=== PATIENT | female | born 1995 | race African-American/Black ===

== ENCOUNTER 2023-11-11 13:25 | Emergency (ER) | payer BC, SELFPAY ==
--- NOTE | ~2023-11-11 | XR_ITS ---
EXAM: XR lumbar spine 2-3V DATE: 11/11/2023 17:13 HISTORY: low back pain no injury . COMPARISON: None available. FINDINGS: Mild lumbar scoliosis. 5 nonrib-bearing lumbar-type vertebral bodies. Pedicles intact. Norm al vertebral body alignment. Vertebral body heights preserved. Disc spaces maintained. Normal facets and posterior elements. No fracture or dislocation. IMPRESSION: Mild lumbar scoliosis. Otherwise normal lumbar spine radiograph findings. Reviewed, dictated and finalized at location K. BOSS IMPRESSION: Mild lumbar scoliosis. Otherwise normal lumbar spine radiograph anisha townsend.
[2023-11-11 13:29] VITALS: BP 131/76; PULSE 114; RESP 20; TEMP 36.8; O2SAT 100
--- NOTE | 2023-11-11 16:55 | ED.BACK ---
HPI - Back Pain/Injury General Chief Complaint: Back Pain/Injury Stated Complaint: back pain Time Seen by Provider: 11/11/23 16:42 Source: patient Mode of arrival: ambulatory Limitations: no limitations History of Present Illness HPI Narrative: This is a 28 year old female that presents to the ER for low back pain. Ongoing over the last couple of days. No known injury or trauma. Reports history of chronic low back problems. Reports she usually takes a muscle relaxer and has ran out. Pain is worse with movement and relieved with rest. Denies saddle anesthesia or bowel/bladder incontinence. Related Data Allergies Allergy/AdvReac Type Severity Reaction Status Date / Time No Known Allergies Allergy Verified 11/11/23 17:24 Review of Systems Review of Systems: CONSTITUTIONAL: Denies fever GENITOURINARY: Denies dysuria or hematuria SKIN: Denies rash MUSCULOSKELETAL: Reports back pain, joint pain, and myalgia. NEUROLOGIC: Denies numbness, or weakness. All systems reviewed & are unremarkable except as noted in HPI and below PMFSH Past Medical History Medical History (Updated 11/11/23 @ 18:26 by Bina Ball PA-C) No active medical problems Social History Social History (Updated 11/11/23 @ 17:02 by Bina Ball PA-C) Substance use: never Exam Narrative: GENERAL: Well-appearing, well-nourished, and in no acute distress. HEAD: Normocephalic, atraumatic. EYES: EOMI. CHEST: Clear to auscultation. No respiratory distress. No wheezes rales or rhonchi HEART: Regular rate and rhythm. No murmur heard. Normal peripheral pulses. BACK: No midline spinal tenderness EXTREMITIES: Normal range of motion. No edema. Strength equal in bilateral lower extremities (5/5) SKIN: Warm, dry, no rash. NEURO: No focal deficits. Alert and oriented x3. PSYCH: Normal mood and affect Course Course Emergency Course: Patient updated on workup and agrees with plan of care. Resting comfortably Vital Signs Vital signs: Vital Signs Temperature 98.3 F 11/11/23 13:29 Pulse Rate 114 H 11/11/23 13:29 Respiratory Rate 20 11/11/23 13:29 Blood Pressure 131/76 11/11/23 13:29 Pulse Oximetry 100 11/11/23 13:29 Oxygen Delivery Room Air 11/11/23 13:29 Temperature 98.3 F 11/11/23 13:29 Pulse Rate 114 H 11/11/23 13:29 Respiratory Rate 20 11/11/23 13:29 Blood Pressure 131/76 11/11/23 13:29 Pulse Oximetry 100 11/11/23 13:29 Oxygen Delivery Room Air 11/11/23 13:29 MDM - Back Pain/Injury MDM Narrative Medical decision making narrative: Patient presents to the ER for acute on chronic low back pain. Patient is neurologically intact. Lumbar spine x-ray without acute abnormalities. Patient update don her workup. Instructed to have follow up with her PCP. She was given warnings to return to the ER Differential Diagnosis Differential diagnosis: Likely lumbar radiculopathy and strain of lumbar region Imaging Data Radiologist's impression: ITS Impressions Lumbar Spine X-Ray 11/11/23 17:17 IMPRESSION: Mild lumbar scoliosis. Otherwise normal lumbar spine radiograph findings. Critical Care Time Critical Care Time Critical Care Time: No Discharge Plan Discharge Clinical Impression: Low back pain Qualifiers: Chronicity: chronic Back pain laterality: bilateral Sciatica presence: without sciatica Qualified Code(s): M54.50 - Low back pain, unspecified Patient Disposition: Home, Self-Care Condition: Stable Instructions: Back Pain (ED) Additional Instructions: Return to the ER if you experience weakness, numbness, bowel/bladder incontinence, or any other symptoms that are concerning to you Rest, use ice/heat, take anti-inflammatories (Aleve, Ibuprofen, Naproxen, etc) or Tylenol as needed for pain as well as muscle relaxer (Flexeril) as needed for pain. Muscle relaxers can make you drowsy, do not drive if you take this Follow up with your primary care doctor Prescrip
[2023-11-11] MEDS: ACETAMINOPHEN ELIXIR 325 MG/10.15 ML UDC 650 MG PO (17:24)
[2023-11-11] MEDS: diazePAM INJ (*CRX) 10 MG/2 ML SYRINGE 5 MG IM (17:24)
== END 2023-11-11 18:50 | disposition home or self-care (01) ==
PROVIDERS: Emergency Provider Physician Assistant
DX: M54.50 Low back pain, unspecified (principal)
CPT/HCPCS: 72100; 96372; 99283; A9270; J3360

== ENCOUNTER 2023-11-15 14:46 | Emergency (ER) | payer BC, SELFPAY ==
[2023-11-15 14:48] VITALS: BP 107/78; PULSE 118; RESP 16; TEMP 36.2; O2SAT 100
[2023-11-15 15:05] VITALS: BP 68/30
--- NOTE | 2023-11-15 15:09 | PC.NURSE ---
Pt to triage desk, states she does not feel well. Pt removed nose clamp per self, not cooperative with staff, will not leave nose clamp or hold pressure to nose. Pt educated on importance of nose clamp/pressure applied. Pt moved into wheelchair by staff and pt to triage bay for reassessment of vitals. Pt hypotensive, taken to room
[2023-11-15 15:19] VITALS: BP 91/54; PULSE 80; RESP 16; O2SAT 99
[2023-11-15] MEDS: SODIUM CHLORIDE 0.9% IV 1,000 ML 999 ML (15:19)
[2023-11-15 15:26] LABS: Basophils Percent Auto 0.3 % (0.2-1.2); Eosinophils Percent Auto 0.3 % (0-4.4); Hematocrit 30.7 % (37.0-47.0); Hemoglobin 9.2 g/dL (12.0-15.0); Immature Granulocyte Absolute 0.02 K/mm3 (0.00-0.031); Immature Granulocyte Percent A 0.3 % (0-0.5); Lymphocytes Absolute Auto 1.72 K/mm3 (0.9-3.2); Lymphocytes Percent Auto 25.4 % (18.3-44.2); Mean Corpuscular Hemoglobin 23.8 pg (26-34); Mean Corpuscular Volume 79.5 fl (80-100); Mean Platelet Volume 10.3 fl (7.4-10.4); Monocytes Absolute Auto 1.5 K/mm3 (0.1-0.6); Monocytes Percent Auto 22.6 % (2.6-8.5); Neutrophils Absolute Auto 3.5 K/mm3 (1.3-6.7); Neutrophils Percent Auto 51.1 % (45.5-73.1); Platelet Count Result 295 k/mm3 (150-375); Red Blood Count 3.86 M/mm3 (4.2-5.4); Red Cell Distribution Width 16.5 % (11.5-14.5); White Blood Count 6.8 K/mm3 (4.5-10.0)
[2023-11-15 15:37] LABS: INR 1.1; Prothrombin Time 14.8 Seconds (11.1-14.7)
[2023-11-15 15:40] LABS: Alanine Aminotransferase 21 U/L (6-35); Albumin Level 3.4 g/dL (3.5-5.1); Alkaline Phosphatase 102 U/L (38-126); Anion Gap 9 mmol/L (8-16); Aspartate Amino Transferase 32 U/L (14-36); Bilirubin,Total 0.2 mg/dL (0.2-1.3); Blood Urea Nitrogen 5 mg/dL (7-17); Calcium 9.1 mg/dL (8.4-10.2); Carbon Dioxide 26 mmol/L (22-30); Chloride 103 mmol/L (98-107); Estimated Glomerular Filt Rate > 60; Glucose 135 mg/dL (65-110); Potassium 2.7 mmol/L (3.4-5.0); Sodium 138 mmol/L (137-145)
[2023-11-15 15:42] LABS: Ovalocytes 1+ (NORMAL); Platelet Estimate Adequate (Adequate); Schistocytes None Seen (NORMAL)
[2023-11-15] MEDS: OXYMETAZOLINE HCL 0.05% NAS 15 ML BTL (*BKC) 1 SPRAY NASAL (15:46)
[2023-11-15 15:51] VITALS: BP 90/61; PULSE 86; RESP 13; O2SAT 100
[2023-11-15] MEDS: POTASSIUM CHLORIDE 20 MEQ PACKET (FOR LIQUID) 40 MEQ PO (15:58)
--- NOTE | 2023-11-15 16:54 | ED.EPISTAXIS ---
HPI - Epistaxis General Chief complaint: Epistaxis Stated complaint: nosebleed Time Seen by Provider: 11/15/23 15:12 History of Present Illness HPI Narrative: 28-year-old female presented the ED for evaluation of epistaxis. Patient states that the bleeding started when she was in the shower. Upon arrival to the emergency department patient had no active bleeding. Patient did have significant clot in left naris that she was unable to clear by blowing her nose over suction. Patient states she is not on any blood thinners and has no history of bleeding disorders. Patient does report yearly nose bleeds. Patient does have follow-up with a ENT physician in [facility]. Related Data Allergies Allergy/AdvReac Type Severity Reaction Status Date / Time No Known Allergies Allergy Verified 11/11/23 17:24 Review of Systems Review of Systems: All systems reviewed & are unremarkable except as noted in HPI and below PMFSH Past Medical History Medical History (Updated 11/16/23 @ 00:01 by Isamar Carr) No active medical problems Social History Social History (Updated 11/11/23 @ 17:02 by Bina Ball PA-C) Substance use: never Exam Narrative: APPEARANCE: Well appearing, no pain, no distress, well-nourished. HEAD: normocephalic, atraumatic. EYES: PERRLA/EOMI, conjunctivae clear. NOSE: Clot within left nares EARS:TMS clear with good light reflex. THROAT: Pharynx clear, no exudate. NECK: Supple. No adenopathy, no masses. RESPIRATORY: Airway patent, respirations nonlabored. Clear to auscultation bilaterally, no rales, rhonchi, wheezing. CARDIOVASCULAR: Regular rate and rhythm without murmurs rubs or gallops. ABDOMINAL: Soft, nontender, nondistended, normal bowel sounds MUSCULOSKELETAL: Moves all extremities. Strength/ROM intact, No edema, No calf tenderness. NEURO: Alert. Cranial nerves II through XII intact. Good gait. Good coordination SKIN: Warm, dry. Normal Color Course Course Emergency Course: 28-year-old female presenting to the emergency department for evaluation of epistaxis. Patient had no active bleeding but did have some residual clot. After clot was cleared patient had no residual bleeding. Patient was updated on epistaxis care at home and encouraged to have close follow-up with ENT. All questions concerns were addressed patient was well-appearing at time of discharge. Vital Signs Vital signs: Vital Signs Temperature 97.2 F L 11/15/23 14:48 Pulse Rate 118 H 11/15/23 14:48 Respiratory Rate 16 11/15/23 14:48 Blood Pressure 107/78 11/15/23 14:48 Pulse Oximetry 100 11/15/23 14:48 Oxygen Delivery Room Air 11/15/23 14:48 Temperature 97.2 F L 11/15/23 14:48 Pulse Rate 78 11/15/23 17:23 Respiratory Rate 18 11/15/23 17:23 Blood Pressure 117/76 11/15/23 17:23 Pulse Oximetry 99 11/15/23 17:23 Oxygen Delivery Room Air 11/15/23 14:48 Procedures Epistaxis Control left: Nose Prepped With: oxymetazoline Direct Inspection: yes Clots Removed by: blowing nose Cautery Used: none Device Inserted: other Patient Tolerated Procedure: well and no complications MDM - Epistaxis Lab Data 11/15/23 15:21 11/15/23 15:21 Labs: Lab Results 11/15/23 Range/Units 15:21 WBC 6.8 (4.5-10.0) K/mm3 RBC 3.86 L (4.2-5.4) M/mm3 Hgb 9.2 L (12.0-15.0) g/dL Hct 30.7 L (37.0-47.0) % MCV 79.5 L (80-100) fl MCH 23.8 L (26-34) pg MCHC 30.0 L (32-36) g/dl RDW 16.5 H (11.5-14.5) % Plt Count 295 (150-375) k/mm3 MPV 10.3 (7.4-10.4) fl Immature Gran % (Auto) 0.3 (0-0.5) % Neut % (Auto) 51.1 (45.5-73.1) % Lymph % (Auto) 25.4 (18.3-44.2) % [place] % (Auto) 22.6 H (2.6-8.5) % Eos % (Auto) 0.3 (0-4.4) % Baso % (Auto) 0.3 (0.2-1.2) % Lymph # (Auto) 1.72 (0.9-3.2) K/mm3 [place] # (Auto) 1.5 H (0.1-0.6) K/mm3 Eos # (Auto) 0.0 (0-0.3) K/mm3 Baso # (Auto) 0.0 (0.0-0.1)
[2023-11-15 17:23] VITALS: BP 117/76; PULSE 78; RESP 18; O2SAT 99
== END 2023-11-15 17:29 | disposition home or self-care (01) ==
PROVIDERS: Emergency Provider Emergency Medicine
DX: R04.0 Epistaxis (principal)
CPT/HCPCS: 36415; 80053; 85025; 85610; 85730; 96360; 99283; A9270; J7030

== ENCOUNTER 2025-11-10 21:12 | Emergency (ER) | payer SELFPAY ==
--- NOTE | ~2025-11-10 | XR_ITS ---
Examination: XR chest 1V portable Clinical History: weakness Comparison: None Technique: Portable AP Findings: Heart size normal. Lungs clear. No acute bony abnormality. IMPRESSION: 1. No acute cardiopulmonary findings given portable technique. Reviewed, dictated and finalized at location R. YMAN
[2025-11-10 21:28] VITALS: BP 124/72; PULSE 100; RESP 24; TEMP 37; O2SAT 100
--- NOTE | 2025-11-10 23:29 | ECG_ITS ---
Test Date: 2025-11-11 00:09:05 Measurements Intervals [place] Rate: 92 P: 37 MS: 149 QRS: 62 QRSD: 76 T: -10 QT: 322 QTc: 400 Interpretive Statements SINUS RHYTHM WITH SINUS ARRHYTHMIA NONSPECIFIC T-WAVE ABNORMALITY- ANTEROLAT/INF LEADS BASELINE ARTIFACT- I, III, AVR, AVL, AVF, V3 BORDERLINE ECG No previous ECG available for comparison Electronically Signed On 11-11-2025 09:22:12 ACCOUNTS PAYABLE OR RECEIVABLE CLERK by Luca Chowdhury D.O.
--- NOTE | 2025-11-10 23:42 | ED.HA ---
HPI - Headache General Chief Complaint: Headache Stated Complaint: headache Time Seen by Provider: 11/10/25 23:30 Source: patient and RN notes reviewed Mode of arrival: EMS Limitations: no limitations History of Present Illness HPI Narrative: Patient presents with report of a headache and sinus issues. Pain /. Has tried OTC congestion meds but having pain everywhere and myalgias. Typically takes anxiety and allergy medications but couldn't take them due to her symptoms. Headache is frontal but also posterior. Has a muscle relaxer but unknown what it is. Not short of breath. No sick contacts. No cough, diarrhea, fever, chills. Says multiple times that she has a high pain tolerance. Her symptoms have been going on for awhile, symptoms come and go. Started before [place]. Lives with her kids, the father of the children comes by and has been checking on her. Denies trauma. Not on anticoagulation. Photophobia. Not really phonophobia but she states she likes to cuddle with her 3 yo but they are loud which doesn't help. Mild eye pain. No loss of consciousness. No neck stiffness. Nausea when the mucous hits her stomach but no vomiting. PCP Chanelle Arredondo Related Data Allergies Allergy/AdvReac Type Severity Reaction Status Date / Time No Known Allergies Allergy Verified 11/11/23 17:24 [facility] Past Medical History Medical History Anxiety Allergies Social History Social History Substance use: never Living arrangements: with family Additional living arrangements comments: kids Exam Narrative: GENERAL: well-nourished, and in no acute distress. HEAD: Normocephalic, atraumatic. EYES: Non injected, non icteric ENT: No epistaxis. Nasal congestion. Gross auditory acuity intact. Tenderness to percussion of frontal sinuses bilaterally. NECK: Supple. No meningismus. Full ROM. CHEST: Speaking in full sentences. No respiratory distress. HEART: Regular rate and rhythm. ABDOMEN: Soft, nondistended. No rigidity or guarding. Not peritoneal EXTREMITIES: Normal range of motion. No lower extremity edema. SKIN: Warm, dry, no rash. NEURO: No focal deficits. Alert and oriented. Answering questions. Following commands. Normal speech without aphasia or dysarthria. PSYCH: Congruent mood and affect. Course Vital Signs Vital signs: Vital Signs Temperature 98.6 F 11/10/25 21:28 Pulse Rate 100 11/10/25 21:28 Respiratory Rate 24 H 11/10/25 21:28 Blood Pressure 124/72 11/10/25 21:28 Pulse Oximetry 100 11/10/25 21:28 Oxygen Delivery Autopap 11/10/25 21:28 Temperature 98.6 F 11/10/25 21:28 Pulse Rate 70 11/11/25 02:10 Respiratory Rate 16 11/11/25 02:10 Blood Pressure 120/75 11/11/25 02:10 Pulse Oximetry 99 11/11/25 02:10 Oxygen Delivery Autopap 11/10/25 21:28 MDM MDM Narrative Medical decision making narrative: Patient presents with headache and sinus issues. In the emergency department she is afebrile vital signs notable for mild tachypnea. When patient last here approximately 2 years ago, her Hgb was 9.2 so triage orders were placed to include labs. After obtaining the patient's history and performing a physical exam, the headache is most likely due to benign etiology. The neurological examination is non-focal, there are no high-risk features on history, vital signs are stable, and the patient is non-toxic appearing. The Ddx for the patient's headache is tension headache, migraine, or other headache of non-emergent etiology. More likely, I suspect this is related to sinuses. Unlikely SAH: headache is non-thunderclap. Headache is intermittent Unlikely subdural/epidural hematoma: no history of trauma, no anticoagulation Unlikely meningitis: afebrile, no meningismus, mild photophobia Unlikely temporal arteritis: pt <60 years old. Unlikely carbon monoxide poisoning: no other house members with similar symptoms UA unremarkable. Preg test negative. The patient's headache was treated symptomatically with acetaminophen. Chemistry normal. She has a mild leukocytosis. Her microcytic anemia is stable and in fact improved from previous. Viral swab negative. On reassessment she states she is starting to get some relief although still having some nasal pressure. Will give ketorolac IM as well as antibiotics given her symptom duration which suggests that might be bacterial rather than viral. Also discharged with Rx for rest of antibiotic course and Afrin spray as well as Zofran and OTC meds. She is discharged with instructions to follow up with their PCP. Given recurrent issues with sinuses/allergies, also provided contact info for ent. Differential Diagnosis Differential Diagnosis: acute viral syndrome; sinusitis/rhinosinusitis (also see above for rest) Medical Records I have reviewed the following patient records and this information was taken into consideration when formulating the assessment and plan.: previous labs and previous ER visits Lab Data MDM Lab Attestation statement: I personally reviewed the patient's lab results. 11/11/25 00:36 11/11/25 00:36 Labs: Lab Results 11/11/25 11/11/25 Range/Units 00:15 00:36 WBC 12.6 H (4.5-10.0) K/mm3 RBC 4.77 (4.2-5.4) M/mm3 Hgb 11.0 L (12.0-15.0) g/dL Hct 35.5 L (37.0-47.0) % MCV 74.4 L (80-100) fl MCH 23.1 L (26-34) pg MCHC 31.0 L (32-36) g/dl RDW 15.6 H (11.5-14.5) % Plt Count 326 (150-375) k/mm3 MPV 9.5 (7.4-10.4) fl Immature Gran % (Auto) 0.3 (0-0.5) % Neut % (Auto) 84.2 H (45.5-73.1) % Lymph % (Auto) 8.4 L (18.3-44.2) % [place] % (Auto) 6.5 (2.6-8.5) % Eos % (Auto) 0.2 (0-4.4) % Baso % (Auto) 0.4 (0.2-1.2) % Lymph # (Auto) 1.05 (0.9-3.2) K/mm3 [place] # (Auto) 0.8 H (0.1-0.6) K/mm3 Eos # (Auto) 0.0 (0-0.3) K/mm3 Baso # (Auto) 0.1 (0.0-0.1) K/mm3 Abs Immat Gran (auto) 0.04 H (0.00-0.031) K/mm3 Absolute Neuts (auto) 10.6 H (1.3-6.7) K/mm3 Absolute Nucleated RBC 0.000 (0.0-0.012) K/mm3 Band Neutrophils % Not Reportable Nucleated RBC % 0.0 (0.0-0.2) % Platelet Estimate Adequate (Adequate) % Immature Plt Fraction 5.0 (0.9-11.2) % Anisocytosis 1+ Schistocytes None seen PT 14.1 (11.1-14.7) Seconds INR 1.1 APTT 35.1 (22.3-36.8) Seconds Sodium 138 (137-145) mmol/L Potassium 3.4 (3.4-5.0) mmol/L Chloride 106 (98-107) mmol/L Carbon Dioxide 24 (22-30) mmol/L Anion Gap 8 (4-12) mmol/L BUN 9 (7-17) mg/dL Creatinine 0.73 (0.7-1.0) mg/dL Estim Creat Clear Calc Not Reportable Estimated GFR > 60 (59 - ) Glucose 95 (65-110) mg/dL Calcium 9.4 (8.4-10.2) mg/dL Magnesium 1.6 (1.6-2.3) mg/dL Total Bilirubin 0.3 (0.2-1.3) mg/dL AST 36 (14-36) U/L ALT 19 (6-35) U/L Alkaline Phosphatase 102 (38-126) U/L Total Protein 7.9 (6.3-8.2) g/dL Albumin 4.5 (3.5-5.1) g/dL Urine Color Yellow (Yellow) Urine Appearance Clear (Clear) Urine pH 8.0 (5.0-9.0) Ur Specific [place] 1.013 (1.001-1.035) Urine Protein Negative (Negative) mg/dL Urine Glucose (UA) Negative (Negative) mg/dL Urine Ketones Negative (Negative) mg/dL Ur Blood (Man) Negative (Negative) Urine Nitrate Negative (Negative) Urine Bilirubin Negative (Negative) Urine Urobilinogen 0.2 (<2.0) mg/dL Leukocyte Esterase Rfl Negative (Negative) JUAN/UL POC Urine HCG, Qual Negative (Negative) Influenza A (RT-PCR) Negative (Negative) Influenza B (RT-PCR) Negative (Negative) RSV (RT-PCR) Negative (Negative) SARS-CoV-2 RNA (RT-PCR) Negative (Negative) Blood Type A Positive Antibody Screen Negative Imaging Data Attestation: I personally reviewed and interpreted this imaging study as follows: My impression: Patient not upright chest x-ray which limits full interpretation there appeared to be some right-sided haziness but without distinct lobar infiltrate and may be due to rotation Radiologist's impression: ITS Impressions Chest X-Ray 11/11/25 06:14 IMPRESSION: 1. No acute cardiopulmonary findings given portable technique. CXR STat Rad: No acute findings (results at 00:01, transmitted at 04:49, after patient has been discharged) Discharge Plan Discharge Clinical Impression: Sinus headache, Leukocytosis, Microcytic anemia Patient Disposition: Home Condition: Stable Instructions: Antibiotic Form, Sinusitis (ED), Acute Headache (DC), Leukocytosis (ED), Anemia (ED) Additional Instructions: Acetaminophen/Tylenol is safe to take with NSAIDs (ibuprofen/Motrin) for pain relief. Continue taking your medications as prescribed including your anxiety medications, allergy medications, muscle relaxer. For nausea, the Zofran disintegrating tablets may help. The nasal decongestant has also been prescribed in addition to a course of antibiotics. Follow-up with primary care provider. Return to the emergency department any new worsening or unmanaged symptoms. Given you had persistent issues, the name of an ear nose throat/ENT/enamel applier is listed below. Patient Language: Hungarian Prescriptions: New acetaminophen 500 mg capsule 500 mg PO Q6H PRN (Reason: fever or pain) Qty: 30 0RF ibuprofen 200 mg capsule 400 mg PO Q8H PRN (Reason: fever or pain) Qty: 30 0RF amoxicillin 500 mg tablet 500 mg PO Q8H 7 Days Qty: 21 0RF Afrin (oxymetazoline) 0.05 % mist 2 spray intranasal Q12H PRN (Reason: nasal congestion) 3 Days Qty: 15 0RF ondansetron 4 mg tablet,disintegrating 4 mg PO Q8H PRN (Reason: nausea and vomiting) Qty: 7 0RF No Action cyclobenzaprine 10 mg tablet 10 mg PO TID PRN (Reason: muscle spasm) Qty: 14 0RF Follow-up/Referrals: Arnulfo,Chanelle Keating APN [Primary Care Provider, Unknown] Wilfrido Tanner MD [Physician, Ear, Nose, Throat] UNKNOWN,DOCTOR [Non-Staff] Stand Alone Forms: Work/School Release IP Time of Disposition: 01:36
[2025-11-11] MEDS: LORazepam (*CRX) 0.5 MG TABLET PO (00:16)
[2025-11-11] MEDS: ACETAMINOPHEN 325 MG TABLET 650 MG PO (00:16)
[2025-11-11 00:17] LABS: BEDSIDEPREGUCG Negative (Negative)
[2025-11-11 00:22] LABS: Add Urine Microscopic? NO; Appearance Urine Clear (Clear); Glucose Urine UA Negative (Negative); Leukocyte Esterase Ur Negative LEU/UL (Negative); Nitrate Urine Negative (Negative); Specific Grav Ur 1.013 (1.001-1.035)
[2025-11-11 00:45] LABS: Hematocrit 35.5 % (37.0-47.0); Hemoglobin 11.0 g/dL (12.0-15.0); Immature Granulocyte Percent A 0.3 % (0-0.5); Immature Platelet Fraction Pct 5.0 % (0.9-11.2); Lymphocytes Absolute Auto 1.05 K/mm3 (0.9-3.2); Mean Corpuscular HGB Conc 31.0 g/dl (32-36); Mean Corpuscular Hemoglobin 23.1 pg (26-34); Mean Corpuscular Volume 74.4 fl (80-100); Nucleated Red Blood Cells Absolute Auto 0.000 K/mm3 (0.0-0.012); Nucleated Red Blood Cells Perc 0.0 % (0.0-0.2); Platelet Count Result 326 k/mm3 (150-375); Red Blood Count 4.77 M/mm3 (4.2-5.4); White Blood Count 12.6 K/mm3 (4.5-10.0)
[2025-11-11 00:55] LABS: Alanine Aminotransferase 19 U/L (6-35); Albumin Level 4.5 g/dL (3.5-5.1); Alkaline Phosphatase 102 U/L (38-126); Anion Gap 8 mmol/L (4-12); Aspartate Amino Transferase 36 U/L (14-36); Bilirubin,Total 0.3 mg/dL (0.2-1.3); Blood Urea Nitrogen 9 mg/dL (7-17); Calcium 9.4 mg/dL (8.4-10.2); Carbon Dioxide 24 mmol/L (22-30); Chloride 106 mmol/L (98-107); Estimated Glomerular Filt Rate > 60; Glucose 95 mg/dL (65-110); INR 1.1; Magnesium 1.6 mg/dL (1.6-2.3); Potassium 3.4 mmol/L (3.4-5.0); Prothrombin Time 14.1 Seconds (11.1-14.7); Sodium 138 mmol/L (137-145); Total Protein 7.9 g/dL (6.3-8.2)
[2025-11-11 00:56] LABS: Partial Thromboplastin Time 35.1 Seconds (22.3-36.8)
[2025-11-11 01:00] LABS: Anisocytosis 1+; Schistocytes None Seen
[2025-11-11 01:00] LABS: Influenza A QL RT-PCR Negative (Negative); Influenza B QL RT-PCR Negative (Negative); RSV RNA, RT-PCR Negative (Negative); SARS-CoV-2 RNA PCR Negative (Negative)
[2025-11-11] MEDS: ONDANSETRON HCL ODT 4 MG TABLET PO (01:30)
[2025-11-11] MEDS: IBUPROFEN 400 MG TABLET PO (01:47)
[2025-11-11] MEDS: AMOXICILLIN 500 MG CAPSULE PO (01:47)
[2025-11-11 02:10] VITALS: BP 120/75; PULSE 70; RESP 16; O2SAT 99
== END 2025-11-11 02:11 | disposition home or self-care (01) ==
PROVIDERS: Physician Assistant; Emergency Provider Student in an Organized Health Care Education/Training Program; PCP Nurse Practitioner Family
DX: G44.89 Other headache syndrome (principal); Z20.822 Contact with and (suspected) exposure to COVID-19; F41.9 Anxiety disorder, unspecified; R94.31 Abnormal electrocardiogram [ECG] [EKG]; D72.829 Elevated white blood cell count, unspecified; D50.9 Iron deficiency anemia, unspecified
CPT/HCPCS: 36415; 71045; 80053; 81003; 81025; 83735; 85025; 85055; 85610; 85730; 86850; 86900; 86901; 87637; 93005; 99283; A9270